=== PATIENT | female | born 1985 | race African-American/Black ===

== ENCOUNTER 2017-05-16 09:31 | Day surgery (SDC) | payer OTHER ==
[2017-05-16 10:10] VITALS: TEMP 98.7; BMI 33.3
[2017-05-16] MEDS ORDERED: IRON SUCROSE INJECTION 200 MG in SODIUM CHLORIDE 100 ML IVPB ONE (10:15)
[2017-05-16 10:33] VITALS: BP 109/69; PULSE 61
== END 2017-05-16 10:34 | disposition home or self-care (01) ==
LOC: FINFUSION 09:31 → FM/S 09:32 → FINFUSION 10:34 → EDSTATUS 05-17 11:56
PROVIDERS: ATTEND Internal Medicine Hematology & Oncology
PROC: 3E033GC Introduction of Other Therapeutic Substance into Peripheral Vein, Percutaneous Approach (ICD-10-PCS; principal; 2017-05-16)
DX: D50.9 Iron deficiency anemia, unspecified (principal)
CPT/HCPCS: 96365; J1756

== ENCOUNTER 2017-05-22 21:57 | Day surgery (SDC) | payer OTHER ==
[2017-05-22 23:48] VITALS: TEMP 98.4; BMI 33.3
[2017-05-23] MEDS ORDERED: IRON SUCROSE INJECTION 200 MG in SODIUM CHLORIDE 100 ML IVPB ONE ×2 (00:15→02:00)
[2017-05-23 00:35] VITALS: BP 106/66; PULSE 62
[2017-05-23] MEDS ORDERED: HYDROCORTISONE SOD SUCCINATE 100 MG/2 ML VIAL IVPUSH ONE ×2 (01:30)
== END 2017-05-23 01:15 | disposition home or self-care (01) ==
LOC: FINFUSION 21:57 → FM/S 22:00 → FINFUSION 05-23 01:15 → EDSTATUS 05-24 11:56
PROVIDERS: ATTEND Internal Medicine Hematology & Oncology
PROC: 3E033GC Introduction of Other Therapeutic Substance into Peripheral Vein, Percutaneous Approach (ICD-10-PCS; principal; 2017-05-22)
DX: E61.1 Iron deficiency (principal)
CPT/HCPCS: 96365; J1756